=== PATIENT | female | born 1985 | race Caucasian/White ===

== ENCOUNTER 2020-01-27 20:27 | Emergency (ER) | payer OTHER ==
[~2020-01-27] VITALS: Ht 167.6 cm; Wt 127.0 kg
[2020-01-27 21:03] VITALS: Ht 167.6 cm; Wt 127.0 kg
[2020-01-27 23:15] LABS: BASOPHIL % 0.8 % (0-2); PLATELET COUNT 196 x10^3mcL (130-400); RED CELL DISTRIBUTION WIDTH 13.5 % (11.5-14.5)
[2020-01-27 23:52] LABS: ALBUMIN 4.2 g/dL (3.4-5.0); ALKALINE PHOSPHATASE 66 U/L (46-116); ALT/SGPT 19 U/L (14-59); AST/SGOT 10 U/L (15-37); BILIRUBIN TOTAL 0.53 mg/dL (0.20-1.00); CALCIUM 8.8 mg/dL (8.5-10.1); CARBON DIOXIDE 27.5 mmol/L (21-32); CHLORIDE SERUM 105 mmol/L (98-107); CREATININE SERUM 0.7 mg/dL (0.6-1.0); GFR1 > 60 mL/min; GLUCOSE SERUM 118 mg/dL (74-106); LIPASE 125 IU/L (73-393); MAGNESIUM 2.2 mg/dL (1.8-2.4); POTASSIUM SERUM 3.9 mmol/L (3.5-5.1); SODIUM SERUM 140 mmol/L (136-145); TOTAL PROTEIN, SERUM 7.8 g/dL (6.4-8.2)
[2020-01-28 01:44] VITALS: BP 132/68
== END 2020-01-28 01:44 | disposition home or self-care (01) ==
LOC: ED 20:27
PROVIDERS: Emergency Medicine
DX: R07.89 Other chest pain (principal)
CPT/HCPCS: Q0092